=== PATIENT | male | born 1960 | race Caucasian/White ===

== ENCOUNTER → 2017-02-08 | Outpatient (REF) ==
--- NOTE | 2017-02-08 09:47 | DI ---
EXAM: Two views of the chest. History: Pre employment screening Comparison: Chest radiograph 03/09/2016 Findings: Heart size is within normal limits. No focal consolidation. No appreciable pleural fluid and no pneumothorax. No acute osseous abnormalities. Surgical clips seen within the upper abdomen. Impression: No acute cardiopulmonary process. No change compared to the prior study.
== END ==
LOC: RAD 09:17
DX: Z02.89 Encounter for other administrative examinations (principal)